=== PATIENT | female | born 1985 | race Caucasian/White ===

== ENCOUNTER 2018-01-31 12:34 | Emergency (ER) | payer SELFPAY | END 2018-01-31 13:44 | disposition home or self-care (01) | LOC: SCSER 12:34 | DX: K52.9 Noninfective gastroenteritis and colitis, unspecified (principal) | CPT/HCPCS: 99283 ==

== ENCOUNTER 2018-08-07 08:23 | Emergency (ER) | payer SELFPAY | END 2018-08-07 09:20 | disposition home or self-care (01) | LOC: SCSER 08:23 | DX: J06.9 Acute upper respiratory infection, unspecified (principal) | CPT/HCPCS: 87081; 87430; 87804; 99283 ==

== ENCOUNTER 2018-10-11 12:14 | Emergency (ER) | payer SELFPAY | END 2018-10-11 13:37 | disposition home or self-care (01) | LOC: SCSER 12:14 | DX: J30.2 Other seasonal allergic rhinitis (principal) | CPT/HCPCS: 99283 ==

== ENCOUNTER 2019-03-30 09:15 | Emergency (ER) | payer SELFPAY | END 2019-03-30 09:45 | disposition home or self-care (01) | LOC: SCSER 09:15 | DX: J06.9 Acute upper respiratory infection, unspecified (principal) | CPT/HCPCS: 99281 ==